=== PATIENT | female | born 1985 | race Two or more races ===

== ENCOUNTER 2018-05-03 06:00 | Day surgery (SDC) | payer OTHER | END 2018-05-03 10:50 | disposition home or self-care (01) | LOC: CIR.AMB 06:00 | DX: N84.0 Polyp of corpus uteri (principal) ==

== ENCOUNTER → 2019-10-21 | Outpatient (CLI) | payer OTHER | END | disposition home or self-care (01) | LOC: NST 15:41 | DX: Z34.83 Encounter for supervision of other normal pregnancy, third trimester (principal) ==